=== PATIENT | female | born 2000 ===

== ENCOUNTER 2022-12-04 18:15 | Emergency (ER) | payer OTHER ==
[2022-12-04] MEDS ORDERED: LORazepam 2 MG/ML SDV IM ONE (18:46)
[2022-12-04] MEDS ORDERED: LORazepam 2 MG/ML SDV ONE (18:58)
[2022-12-04] MEDS ORDERED: LORazepam 1 MG Tab ONE ×2 (19:06→19:30)
== END 2022-12-04 19:55 | disposition home or self-care (01) ==
LOC: LB.ED 18:15
DX: R07.89 Other chest pain (principal); F41.9 Anxiety disorder, unspecified; Z88.8 Allergy status to other drugs, medicaments and biological substances
CPT/HCPCS: 93005; 93010; 96372; 99283; 99284; A9270-GY; J2060